=== PATIENT | male | born 1950 | race Caucasian/White ===

== ENCOUNTER → 2016-02-24 | Outpatient (CLI) | payer OTHER ==
[~2016-02-24] MED LIST: ADVIL200 MG PO; ASPIRIN EC325 MG PO; CARDIZEM CD,CA240 MG PO; DILTIAZEM 24HR360 M1 PO
== END | disposition home or self-care (01) ==
LOC: MRI 13:13 → RAD 14:30 → MRI 14:30
DX: Z01.818 Encounter for other preprocedural examination (principal); C43.9 Malignant melanoma of skin, unspecified
CPT/HCPCS: 70140; 70553

== ENCOUNTER → 2016-02-26 | Outpatient (CLI) | payer OTHER | END | disposition home or self-care (01) | LOC: RAD 07:41 | DX: C43.9 Malignant melanoma of skin, unspecified (principal) | CPT/HCPCS: 71260; 74177 ==

== ENCOUNTER 2016-03-17 06:36 | Day surgery (SDC) | payer OTHER ==
[~2016-03-17] VITALS: Ht 182.9 cm; Wt 102.5 kg
[~2016-03-17 06:36] MED LIST changes: +ASPIRIN325 MG PO; +LANOXIN125 MCG PO
[2016-03-17 07:20] VITALS: BP 141/85
[2016-03-17 19:35] VITALS: BP 139/85
[2016-03-17 20:00] VITALS: BP 139/85
[2016-03-17 20:52] VITALS: BP 139/85
[2016-03-18 00:03] VITALS: BP 120/73
[2016-03-18 04:00] VITALS: BP 132/68
[2016-03-18 04:24] VITALS: BP 132/68
[2016-03-18 08:10] VITALS: BP 147/71
[2016-03-18] MEDS ORDERED: PERCOCET 5/31 TABLET PO (11:05)
== END 2016-03-18 12:08 | disposition home or self-care (01) ==
LOC: SDC 06:36 → 3EAST 11:45 → 2SOUTH 11:45 → SDC 12:59 → 3EAST 19:24
DX: C43.9 Malignant melanoma of skin, unspecified (principal); C77.3 Secondary and unspecified malignant neoplasm of axilla and upper limb lymph nodes; I10 Essential (primary) hypertension; I48.0 Paroxysmal atrial fibrillation; E66.9 Obesity, unspecified
CPT/HCPCS: 88305; G0378; J0690; J1170; J2250; J3010; J3480; S0020